=== PATIENT | female | born 1935 | race African-American/Black ===

== ENCOUNTER 2017-08-12 13:29 | Emergency (ER) | payer MEDICARE, BC ==
[~2017-08-12] VITALS: Ht 160 cm; Wt 78.5 kg
[~2017-08-12 13:29] MED LIST: (None)1 % OS; ACETAMIN325 MG PO; AMOXICILLIN/CL875 MG PO; AUGMENTIN500TAB PO; BACTRIM DS1 TAB PO; BESIVANCE0.6 % OD; CATAPRES0.1 MG OR; CEFEPIME1 G2 IV; CEFTIN500 MG PO; CENTRUM SILVER PO; CETIRIZ/PSE1 TAB PO; CHILD ASA LS81 MG PO; CIPRO XR500 MG PO; CIPROFLOXACN250 MG PO; CIPROFLOXACN500 MG PO; ECONOPRED PL1 % OP; FLONASE NASAL50 MCG; GLUCOPHAGE500 MG OR; GLUCOPHAGE500 MG PO; HUMULIN R1 ML IJ; HYDRALAZINE25 MG PO; HYDROCHLOROT12.5 MG OR; HYDROCHLOROT12.5 MG PO; KETOROLAC0.5 % OP; KLOR-CON 1010 ME1 PO; LASIX 40 MG TAB40 MG PO; LIPITOR40 M1 PO; LIPITOR40 MG PO; LISINOP/HCTZ1 TA1 PO; LISINOPRIL/HYDR1 TA1 PO; LISINOPRIL2.5 MG PO; LISINOPRIL20 MG PO; LOTEMAX0.52 OU; LOVASTATIN40 MG PO; LUMIGAN0.01 % OP; LUMIGAN0.01 % OU; METFORMIN500 M1 PO; METFORMIN500 MG PO; METOCLOPRAM5 MG PO; METOCLOPRAMIDE H5 MG PO; METOPROL TAR50 MG PO; METOPROLOL TART50 MG PO; MONOPRIL HC1 OR; MONOPRIL20 MG OR; MULTI VIT PO; MULTI-VIT/FE PO; NOVOLIN 70/30 SC; NOVOLOG MIX SC; PERCOCET 5/321 COMBO PO; PLAVIX75 MG PO; POM OU; PROTONIX40 M2 PO; PROTONIX40 MG PO; RESTORIL15 MG PO; SIMVASTATIN20 MG PO; SIMVASTATIN40 MG PO; STOOL SOFTE OR; TEMAZEPAM15 MG PO; XALATAN0.005 % OP; ZOFRAN4 MG/TAB PO; ZPAK PO; ZYRTEC-D AL1 PO; ZYRTEC-D ALG OR; [UNRECOGNIZED DRUG - OTHER] IV; catapres PO
[2017-08-12] MEDS ORDERED: CLOPIDOGREL75 MG PO (13:58)
[2017-08-12] MEDS ORDERED: NOVOLOG MIX100 U/ML SC (14:01)
[2017-08-12 14:51] LABS: HEMATOCRIT 39.2 % (37.0-47.0); HEMOGLOBIN 12.5 g/dl (12.0-16.0); MEAN CELL VOLUME 89.7 fL CALC (80.0-100.0); MEAN CORPUSCULAR HGB 28.6 pG CALC (26.0-32.0); MEAN CORPUSCULAR HGB CONC 31.9 g/L CALC (32.0-36.0); RED BLOOD COUNT 4.37 mill/uL (4.20-5.60); RED CELL DISTRI WIDTH 12.6 % (11.5-15.5)
[2017-08-12 14:52] LABS: IMMATURE GRANULOCYTES 0.5 % (0.0-1.0); NEUT# 7.64 thou/uL (2.00-7.15)
[2017-08-12 15:08] LABS: ALBUMIN 3.8 g/dL (3.2-5.0); ANION GAP 19 (6-22 (CALC)); BILIRUBIN, TOTAL 0.4 mg/dL (0.0-1.4); BUN 19 mg/dL (8-23); BUN/CREATININE RATIO 16 (12-20 (CALC)); CARBON DIOXIDE 28 mmol/l (22-30); CHLORIDE 99 mmol/l (95-108); CREATININE 1.2 mg/dL (0.5-1.0); GFR 43 ML/MIN (>=60 (CALC)); GFR FOR AFR.AMER. 52 ML/MIN (>=60 (CALC)); POTASSIUM 4.3 mmol/l (3.5-5.1); SODIUM 142 mmol/l (137-146); TOTAL PROTEIN 7.8 g/dL (6.3-8.2)
[2017-08-12 15:10] LABS: ALKALINE PHOSPHATASE 109 u/l (38-126); AMYLASE 207 u/l (30-110); LIPASE 98 u/l (23-300); MYOGLOBIN 53 ng/mL (0 - 62); SGOT/AST 23 u/l (9-36); SGPT/ALT 14 u/l (11-66)
[2017-08-12 15:35] LABS: URINE BILIRUBIN - DIPSTICK NEGATIVE (NEGATIVE); URINE BLOOD DIPSTICK TRACE-INTACT (NEGATIVE); URINE COLOR YELLOW; URINE GLUCOSE - DIPSTICK >=1000 mg/dL (NEGATIVE); URINE KETONE TRACE mg/dL (NEGATIVE); URINE PH 5.5 (4.5-8.0); URINE PROTEIN - DIPSTICK NEGATIVE (NEG-TRACE); URINE SPECIFIC GRAVITY 1.015; URINE UROBILINOGEN - DIPSTICK 0.2 E.U./dL (0.2)
[2017-08-12 15:38] LABS: URINE CLARITY TURBID; URINE LEUK ESTERASE MODERATE (NEGATIVE); URINE NITRITE - DIPSTICK POSITIVE (Negative)
[2017-08-12 15:47] LABS: URINE BACTERIA MODERATE hpf; URINE MUCUS FEW hpf (NONE-FEW); URINE SQUAMOUS EPITHELIAL CELL FEW EPI/hpf (0-FEW); URINE WBC 20-50 WBC/hpf (0-5)
[2017-08-12] MEDS ORDERED: CIPROFLOXACN500 MG PO (16:42)
[2017-08-12] MEDS ORDERED: ZOFRAN ODT4 MG PO (16:42)
[2017-08-12 17:26] VITALS: BP 136/80
== END 2017-08-12 17:28 | disposition home or self-care (01) ==
LOC: ED 13:29
PROVIDERS: Emergency Medicine
DX: E11.65 Type 2 diabetes mellitus with hyperglycemia (principal); N39.0 Urinary tract infection, site not specified; B96.1 Klebsiella pneumoniae [K. pneumoniae] as the cause of diseases classified elsewhere; R11.10 Vomiting, unspecified; I10 Essential (primary) hypertension; E78.00 Pure hypercholesterolemia, unspecified
CPT/HCPCS: Q9967

== ENCOUNTER 2017-08-13 17:31 | Inpatient (IN) | payer MEDICARE, BC ==
[~2017-08-13] VITALS: Ht 157.5 cm; Wt 76.7 kg
[~2017-08-13 17:31] MED LIST changes: +CLOPIDOGREL75 MG PO; +NOVOLOG MIX100 U/ML SC; +ZOFRAN ODT4 MG PO
--- NOTE | 2017-08-13 17:50 | NUR ---
PT ARRIVED A DIRECT ADMIT AT THIS TIME. WITH FAMILY IN THE WC. ABLE TO STAND AND AMBULATE TO THE BATHROOM WITH FAMILY IN THE ROOM.
[2017-08-13 18:00] VITALS: BP 140/58
--- NOTE | 2017-08-13 18:20 | NUR ---
IV ATTEMPTED X3, WITH SUCCESS BY YECENIA REYNAGA LAC #20 BREATH SOUNDS ARE CLEAR,BILATERALLY, NO C/O SOB, HR IS REG,PULSES ARE STRONG X4. ABD IS SOFT WITH ACTIVE BS. CONTINUE TO OSBERVE AND MONITOR.
[2017-08-13 19:05] LABS: URINE BILIRUBIN - DIPSTICK NEGATIVE (NEGATIVE); URINE BLOOD DIPSTICK TRACE-INTACT (NEGATIVE); URINE COLOR YELLOW; URINE GLUCOSE - DIPSTICK >=1000 mg/dL (NEGATIVE); URINE KETONE NEGATIVE (NEGATIVE); URINE NITRITE - DIPSTICK NEGATIVE (Negative); URINE PH 5.5 (4.5-8.0); URINE PROTEIN - DIPSTICK NEGATIVE (NEG-TRACE); URINE UROBILINOGEN - DIPSTICK 0.2 E.U./dL (0.2)
[2017-08-13 19:08] LABS: HEMATOCRIT 38.1 % (37.0-47.0); HEMOGLOBIN 12.1 g/dl (12.0-16.0); IMMATURE GRANULOCYTES 0.9 % (0.0-1.0); MEAN CELL VOLUME 90.7 fL CALC (80.0-100.0); MEAN CORPUSCULAR HGB 28.8 pG CALC (26.0-32.0); MEAN CORPUSCULAR HGB CONC 31.8 g/L CALC (32.0-36.0); NEUT# 7.6 thou/uL (2.00-7.15); RED BLOOD COUNT 4.2 mill/uL (4.20-5.60); RED CELL DISTRI WIDTH 13.1 % (11.5-15.5)
[2017-08-13 19:12] LABS: URINE CLARITY CLOUDY; URINE LEUK ESTERASE LARGE (NEGATIVE)
--- NOTE | 2017-08-13 19:12 | NUR ---
REPORT RECEIVED FROM EVELINA ELKINS;PT RESTING IN BED;INTRODUCED SELF TO PT AND POC DISCUSSED;PT DENIES ANY PAIN OR NEEDS AT THIS TIME;ENCOURAGED TO CALL FOR ASSISTANCE IF NEEDED;WILL CONTINUE TO MONITOR
[2017-08-13 19:22] LABS: URINE BACTERIA FEW hpf; URINE SQUAMOUS EPITHELIAL CELL FEW EPI/hpf (0-FEW); URINE WBC TNTC WBC/hpf (0-5); URINE YEAST MODERATE hpf
[2017-08-13 19:34] LABS: CREATININE 1.7 mg/dL (0.5-1.0)
[2017-08-13 21:07] VITALS: BP 114/64
--- NOTE | 2017-08-13 21:15 | NUR ---
PT APPEARS TO BE SLEEPING IN SEMI FOWLERS POSITION;WOKE PT TO COMPLETE ASSESSMENT;PT A&O X3;RESPIRATIONS EVEN AND UNLABORED ON RA,CLEAR LUNG SOUNDS;ABDOMEN SOFT ON PALPATION AND ACTIVE IN ALL 4 QUADS;STRONG PEDAL PULSES;CAP REFILL LESS THAN 2 SECONDS;SKIN INTACT;#20G TO LAC INFUSING NS @ 100ML/HR,SITE APPEARS HEALTHY AND FREE FROM EDEMA;SNACK PROVIDED WITH QHS INSULIN;SAFETY PRECAUTIONS REINFORCED;PT STATES "I FEEL BETTER";PO FLUIDS ENCOURAGED;PT DENIES ANY OTHER NEEDS AT THIS TIME;FALL PRECAUTIONS IN PLACE;CALL LIGHT IN REACH;WILL CONTINUE TO MONITOR
--- NOTE | 2017-08-14 | NUR ---
PT RESTING IN SEMI FOWLERS POSITION;PT DENIES ANY PAIN OR NEEDS AT THIS TIME;IV SITE PATENT;RESPIRATIONS EVEN AND UNLABORED ON RA;PT ENCOURAGED TO CALL FOR ASSISTANCE IF NEEDED;COMMODE AT BEDSIDE;WILL CONTINUE TO MONITOR
[2017-08-14 03:01] VITALS: BP 123/58
--- NOTE | 2017-08-14 03:10 | NUR ---
PT RESTING IN BED WITH MARISELALAB AT BEDSIDE;PT DENIES ANY PAIN OR DISCOMFORTS;RESPIRATIONS EVEN AND UNLABORED ON RA,O2 @ 2L HUM AT BEDSIDE;PT ENCOURAGED TO CALL FOR ANY ASSISTANCE IF NEEDED;WILL CONTINUE TO MONITOR
[2017-08-14 03:47] LABS: HEMOGLOBIN 11.4 g/dl (12.0-16.0); IMMATURE GRANULOCYTES 0.5 % (0.0-1.0); MEAN CELL VOLUME 91.8 fL CALC (80.0-100.0); MEAN CORPUSCULAR HGB 28.3 pG CALC (26.0-32.0); MEAN CORPUSCULAR HGB CONC 30.8 g/L CALC (32.0-36.0); NEUT# 6.21 thou/uL (2.00-7.15); RED BLOOD COUNT 4.03 mill/uL (4.20-5.60); RED CELL DISTRI WIDTH 13.1 % (11.5-15.5)
[2017-08-14 05:19] LABS: BILIRUBIN, TOTAL 0.2 mg/dL (0.0-1.4); CREATININE 1.5 mg/dL (0.5-1.0); POTASSIUM 4.1 mmol/l (3.5-5.1)
[2017-08-14 05:49] LABS: TOTAL PROTEIN 6.2 g/dL (6.3-8.2)
--- NOTE | 2017-08-14 07:00 | NUR ---
BEDSIDE REPORT RECEIVED BY LANEY. PT IS SLEEPING WITH NO S/S OF DISTRESS NOTED. CALL LIGHT IN REACH.
[2017-08-14 07:34] VITALS: BP 167/63
--- NOTE | 2017-08-14 08:00 | NUR ---
PT IS SITTING IN THE SIDE OF THE BED. ASSESSMENT DONE. RESPS EVEN AND UNLABORED. NS INFUSING WELL. PT DENIES PAIN AT THIS TIME. ORINETED TO CALL LIGHT AND SAFETY PRECAUTIONS REINFORCED.
--- NOTE | 2017-08-14 12:00 | NUR ---
PT IS SITTING IN BED EATING HER LUNCH WITH NO S/S OF DISTRESS NOTED. FAMILY IN ROOM. CALL LIGHT IN REACH.
[2017-08-14 16:00] VITALS: BP 168/70
--- NOTE | 2017-08-14 16:00 | NUR ---
PT IS SITTING IN CHAIR WITH NO S/S OF DISTRESS NOTED. PT DENIES ANY NEEDS AT THIS TIME. CALL LIGHT IN REACH.
--- NOTE | 2017-08-14 18:58 | NUR ---
Discharge instructions given. Patient verbalizes understanding of same. Discharged in stable condition via Wheelchair to Home with family. All belongings sent with pt.
== END 2017-08-14 19:00 | disposition home or self-care (01) | DRG 690 ==
LOC: MS2 17:31
PROVIDERS: ADMIT Internal Medicine Geriatric Medicine; ATTEND Internal Medicine Geriatric Medicine
DX: N39.0 Urinary tract infection, site not specified (principal); E11.42 Type 2 diabetes mellitus with diabetic polyneuropathy; E11.65 Type 2 diabetes mellitus with hyperglycemia; I11.0 Hypertensive heart disease with heart failure; I50.9 Heart failure, unspecified; E86.0 Dehydration; I25.10 Atherosclerotic heart disease of native coronary artery without angina pectoris; E78.5 Hyperlipidemia, unspecified; K21.9 Gastro-esophageal reflux disease without esophagitis; F41.9 Anxiety disorder, unspecified; M35.3 Polymyalgia rheumatica; E11.43 Type 2 diabetes mellitus with diabetic autonomic (poly)neuropathy; K31.84 Gastroparesis; M19.90 Unspecified osteoarthritis, unspecified site; B96.20 Unspecified Escherichia coli [E. coli] as the cause of diseases classified elsewhere; B96.4 Proteus (mirabilis) (morganii) as the cause of diseases classified elsewhere

== ENCOUNTER 2018-04-06 13:23 | Inpatient (IN) | payer MEDICARE, BC ==
[~2018-04-06] VITALS: Ht 157.5 cm; Wt 81.8 kg
[2018-04-06] VITALS (8 sets, daily range): BP systolic 151–177; BP diastolic 57–76
[2018-04-06] MEDS ORDERED: NOVOLIN 70/30 SC ×2 (13:57)
[2018-04-06 14:41] LABS: HEMATOCRIT 45.4 % (37.0-47.0); HEMOGLOBIN 14.1 g/dl (12.0-16.0); IMMATURE GRANULOCYTES 0.4 % (0.0-5.0); MEAN CELL VOLUME 90.3 fL CALC (80.0-100.0); MEAN CORPUSCULAR HGB CONC 31.1 g/L CALC (32.0-36.0); NEUT# 9.16 thou/uL (2.00-7.15); RED BLOOD COUNT 5.03 mill/uL (4.20-5.60); RED CELL DISTRI WIDTH 13.9 % (11.5-15.5)
--- NOTE | 2018-04-06 14:50 | NUR ---
PT RESTIGN ON STRETCHER DAUGHTER AT SIDE, STATES N/V STARTED ON FRIDAY AND HAS NOT IMPROVED, TOOK AM MEDICATIONS BUT VOMITED THEM UP AND PILLS WERE VISIBLE IN EMESIS PER DAUGTER.
[2018-04-06 14:58] LABS: ALKALINE PHOSPHATASE 128 u/l (38-126); AMYLASE 125 u/l (30-110); BILIRUBIN, TOTAL 0.4 mg/dL (0.0-1.4); BUN 24 mg/dL (8-23); BUN/CREATININE RATIO 16 (12-20 (CALC)); CARBON DIOXIDE 26 mmol/l (22-30); CHLORIDE 102 mmol/l (95-108); CREATININE 1.5 mg/dL (0.5-1.0); GFR 33 ML/MIN (>=60 (CALC)); GFR FOR AFR.AMER. 40 ML/MIN (>=60 (CALC)); LIPASE 82 u/l (23-300); SGOT/AST 20 u/l (9-36); SODIUM 143 mmol/l (137-146)
[2018-04-06 15:00] LABS: ANION GAP 20 (6-22 (CALC)); POTASSIUM 5.2 mmol/l (3.5-5.1); TOTAL PROTEIN 8.6 g/dL (6.3-8.2)
--- NOTE | 2018-04-06 15:08 | NUR ---
MEDICATED FOR COMPLAINTS OF NAUSE, BP ELEVATED WILL NOTIFY .
[2018-04-06 15:09] LABS: MYOGLOBIN 45 ng/mL (0 - 62)
--- NOTE | 2018-04-06 15:58 | NUR ---
PT OOB TO BESC, TOELRATED WELL, CONTINENT OF 200 ML CLOUDY URINE WITH FOUL ODOR NOTED, SPECIMEN OBTAINED AND SENT TO LAB.
[2018-04-06 16:25] LABS: URINE BILIRUBIN - DIPSTICK NEGATIVE (NEGATIVE); URINE BLOOD DIPSTICK SMALL (NEGATIVE); URINE COLOR YELLOW; URINE GLUCOSE - DIPSTICK >=1000 mg/dL (NEGATIVE); URINE KETONE 15 mg/dL (NEGATIVE); URINE LEUK ESTERASE TRACE (NEGATIVE); URINE NITRITE - DIPSTICK NEGATIVE (Negative); URINE PH 5.5 (4.5-8.0); URINE PROTEIN - DIPSTICK NEGATIVE (NEG-TRACE); URINE SPECIFIC GRAVITY 1.025; URINE UROBILINOGEN - DIPSTICK 0.2 E.U./dL (0.2)
[2018-04-06 16:27] LABS: URINE CLARITY SL CLOUDY
[2018-04-06 16:34] LABS: URINE BACTERIA MODERATE hpf; URINE SQUAMOUS EPITHELIAL CELL FEW EPI/hpf (0-FEW)
--- NOTE | 2018-04-06 16:39 | NUR ---
AWARE OF CONTINUED HYPERTENSION, WILL REPEAT UPON RETURN FROM RADIOLOGY. DAUGHTER REMAINS AT BEDSIDE
--- NOTE | 2018-04-06 17:38 | NUR ---
15F WOLF INSERTED USING STERILE TECHNIQUE PER VERBAL ORDER , IMMEDIATE RETRUN OF 400+ ML CLOUDY YELLOW URINE, DAUGHTER REMAINS AT BEDSIDE
--- NOTE | 2018-04-06 17:56 | NUR ---
EKG COMPLETED AT THIS TIME, AT BEDSIDE TO ERUM
--- NOTE | 2018-04-06 18:15 | NUR ---
BP 170/63 AWARE.
--- NOTE | 2018-04-06 18:18 | NUR ---
REPORT CALLED TO DOREEN ON ICU BED 5 ASSIGNED
--- NOTE | 2018-04-06 18:25 | NUR ---
TRASNPORTED TO ICU BED 5 VIA STRETCHER WITH MONITOR
--- NOTE | 2018-04-06 18:30 | NUR ---
82 yr old black female admitted icu5 per stretcher from er. transferred x2 to bed. bed weight obtained.
--- NOTE | 2018-04-06 19:00 | NUR ---
awake. denies distress. eating supper meal @ present. denies nausea. o2 cont per nc. potline monitor shows sinus rhythm pvcs. #20 lac ns began @ 125cchr. barker cath in place. urine cloudy yellow. history obtained per er record & caro(daughter). oriented to room. fall precautions initiated.
--- NOTE | 2018-04-06 19:20 | NUR ---
dr jarrett notified of admission. he will review chart & put orders in computer.
--- NOTE | 2018-04-06 19:50 | NUR ---
rt notified of need for ekg.
--- NOTE | 2018-04-06 19:55 | NUR ---
rt here. ekg obtained.
--- NOTE | 2018-04-06 22:00 | NUR ---
eyes closed. no distress. residential monitor shows sinus rhythm.
--- NOTE | 2018-04-06 23:30 | NUR ---
awake. yelling out for family. found pt out of bed, iv out, barker pulled apart from bag, bp cuff & pulse ox off. assisted pt to bed. reoriented without diff. iv, sterile barker bag, bp cuff & pulse ox replaced. bed alarm activated.
[2018-04-07] VITALS (13 sets, daily range): BP systolic 104–195; BP diastolic 50–89
--- NOTE | 2018-04-07 02:00 | NUR ---
resting quietly. resps even & unlabored. no apparent distress.
--- NOTE | 2018-04-07 05:00 | NUR ---
lab here. pt began yelling out for family. pt reoriented without diff. pt refused lab draw.
--- NOTE | 2018-04-07 05:50 | NUR ---
rt here. ekg obtained.
--- NOTE | 2018-04-07 06:11 | NUR ---
blood drawn & sent to lab.
[2018-04-07 06:32] LABS: IMMATURE GRANULOCYTES 0.3 % (0.0-5.0); MEAN CELL VOLUME 90.1 fL CALC (80.0-100.0); MEAN CORPUSCULAR HGB 28.6 pG CALC (26.0-32.0); MEAN CORPUSCULAR HGB CONC 31.8 g/L CALC (32.0-36.0); NEUT# 6.82 thou/uL (2.00-7.15); RED BLOOD COUNT 4.05 mill/uL (4.20-5.60); RED CELL DISTRI WIDTH 14.2 % (11.5-15.5)
[2018-04-07 06:39] LABS: BILIRUBIN, TOTAL 0.3 mg/dL (0.0-1.4); CHOLESTEROL HDL RATIO 3.3 (<4.4 (CALC)); CREATININE 1.1 mg/dL (0.5-1.0)
[2018-04-07 06:44] LABS: HEMATOCRIT 36.5 % (37.0-47.0); HEMOGLOBIN 11.6 g/dl (12.0-16.0); POTASSIUM 3.8 mmol/l (3.5-5.1)
[2018-04-07 06:45] LABS: ALBUMIN 2.9 g/dL (3.2-5.0); TOTAL PROTEIN 6.3 g/dL (6.3-8.2)
--- NOTE | 2018-04-07 06:45 | NUR ---
RECIEVED REPORT FROM EVELINA FERGUSON. ASSUMED PT CARE.
--- NOTE | 2018-04-07 07:00 | NUR ---
PT A&OX3, ABLE TO MAKE NEEDS KNOWN. SR WITH OCCASIONAL PVC'S ON TELEMETRY, HR 72, B/P 144/66, T-96.8, SA02@97%RA. PT DENIES CHEST PAIN, SOB OR DISTRESS AT THIS TIME. RESPIRATIONS EVEN, UNLABORED. LS CLEAR THROUGHOUT. ABDOMEN DISTENDED, SOFT, NON-TENDER, BSX4 ACTIVE. PT STATES LAST BM 11-5-18. WOLF CATHETER PATENT, DRAINING TO BSD, DARK YELLOW URINE, PT DENIES BURNING OR PAIN AT SITE, WOLF CARE PROVIDED. SKIN IS CDI, PT DECLINES MIKEY'S TO BLE. 20G TO RAC INFUSING NS @125ML/HR, NO S/S OF INFILTRATION OR REDNESS AT SITE. BED ALARM IN PLACE, BED IN LOWEST POSITION, CALL LIGHT IN REACH.
--- NOTE | 2018-04-07 07:31 | NUR ---
KAITLIN AT BEDSIDE, HELPED PT WITH BRUSHING TEETH AND SET UP BREAKFAST TRAY, PT SITTING UP IN BED EATING BREAKFAST. TAKES PO FLUIDS AND FOOD WITHOUT DIFFICULTY. CALL LIGHT IN REACH.
--- NOTE | 2018-04-07 07:49 | NUR ---
DIETARY ON UNIT, FOR MEAL ORDERS.
--- NOTE | 2018-04-07 08:00 | NUR ---
DR. PINEDA AT BEDSIDE FOR ASSESSMENT AND TO DISCUSS PLAN OF CARE. NEW ORDERS RECIEVED. CALL LIGHT IN REACH.
--- NOTE | 2018-04-07 08:25 | NUR ---
FAMILY AT BEDSIDE, DR. PINEDA SPOKE WITH FAMILY. PT RESTING IN BED, VISITING WITH DAUGHTERS AND GRANDSON.
--- NOTE | 2018-04-07 09:00 | NUR ---
PT NOTED SPITING IN TO BAG, STATED SHE WAS NAUSEOUS. COOL CLOTH GIVEN. WILL MONITOR.
--- NOTE | 2018-04-07 10:02 | NUR ---
PT RESTING IN BED WITH EYES CLOSED. 20G TO RAC INFUSING NS@50ML/HR, NO S/S OF INFILTRATION OR REDNESS AT SITE. RESPIRATION EVEN/UNLABORED. BED IN LOWEST POSITION, CALL LIGHT IN REACH. WILL MONITOR.
--- NOTE | 2018-04-07 10:45 | NUR ---
PT COMPLAINING OF FEELING NAUSEOUS, MEDICATED WITH ZOFRAN, PRN. PER ORDERS. WILL MONITOR.
--- NOTE | 2018-04-07 11:00 | NUR ---
PT B/P 211/, THEN 188/80. PT MEDICATED WITH LABATOLOL PRN ORDERED. WILL MONITOR.
--- NOTE | 2018-04-07 11:45 | NUR ---
DIETARY ON UNIT, LUNCH TRAY SET UP. GRAND-DAUGHTER AT BED SIDE. CALL LIGHT IN REACH, WILL MONITOR.
--- NOTE | 2018-04-07 14:06 | NUR ---
PT RESTING IN BED WITH EYES CLOSED, FAMILY AT BEDSIDE.
--- NOTE | 2018-04-07 14:32 | NUR ---
DAUGHTER CALLED, UPDATE GIVEN AFTER CODE RECIEVED. THEN CALL TRANSFERRED TO PORTABLE TO SPEAK WITH PT.
--- NOTE | 2018-04-07 15:18 | NUR ---
NOTIFIED DR. PINEDA IN REGARDS TO PT CONTINUOUS HTN. NEW ORDERS RECIEVED. WILL MONITOR. FAMILY REMAINS AT BEDSIDE. PT DENIES CHEST PAIN, H/A, SOB OR DISTRESS AT THIS TIME. CALL LIGHT IN REACH . WILL MONITOR.
--- NOTE | 2018-04-07 16:01 | NUR ---
PT WITH MULTIPLE FAMILY MEMEBERS AT BEDSIDE, PT STATING TO FAMILY SHE SPIT UP LUNCH, NO EVEIDENCE NOTED. PT HAS ONLY HAS ONLY BEEN SEEN WITH MINIMAL CLEAR SPIT. PT NOTED WHEN SPEAKING WITH FAMILY ON PHONE TO CLAIM SHE IS VOMITING AND CAN NOT TALK. NO EVIDENCE NOTED OF THIS EITHER. PT HAS HAD < 100ML OF CLEAR SPIT THIS SHIFT. PT HAS DECLINED A 2ND PRN DOSE OF ZOFRAN WHEN ASKED. CALL LIGHT IN REACH. WILL MONITOR.
--- NOTE | 2018-04-07 17:00 | NUR ---
DR. PINEDA AT BEDSIDE FOR ASSESSMENT AND TO DISCUSS PLAN OF CARE, NEW ORDERS RECIEVED.
--- NOTE | 2018-04-07 17:30 | NUR ---
DIETARY ON UNIT, PT REFUSED DINNER TRAY. PLACED TRAY TO SIDE FOR LATER IF PT CHANGES MIND. WILL MONITOR.
--- NOTE | 2018-04-07 17:49 | NUR ---
PT MEDICATED WITH MIRIAM'S MOUTHWASH FOR N/V AND TYLENOL FOR NECK ACHING "3" ON 1-10 SCALE. PT CONTINUES WITH MULTIPLE FAMILY MEMBERS AT BEDSIDE.
--- NOTE | 2018-04-07 18:16 | NUR ---
PT DECIDED TO EAT DINNER. MEAL TRAY SET UP. PT FAMILY REMAINS AT BEDSIDE.
--- NOTE | 2018-04-07 19:00 | NUR ---
awake. denies n/v. marine habitat resource specialist shows sinus rhythm pvcs. #20 rac ns infusing @ 50cchr. po fluids taken well. barker cath in place. urine clear yellow-much improved from last nite. fall precautions & bed alarm cont.
--- NOTE | 2018-04-07 22:00 | NUR ---
eyes closed. no distress. monitoring coordinator shows sinus rhythm.
[2018-04-08] VITALS (10 sets, daily range): BP systolic 118–174; BP diastolic 51–73
--- NOTE | 2018-04-08 00:01 | NUR ---
eyes closed. no distress. monitor worker shows sinus rhythm.
--- NOTE | 2018-04-08 02:00 | NUR ---
resting quietly. resps even & unlabored. no apparent distress.
--- NOTE | 2018-04-08 04:00 | NUR ---
eyes closed. no distress. color television console monitor shows sinus rhythm.
--- NOTE | 2018-04-08 05:00 | NUR ---
blood drawn & sent to lab
[2018-04-08 05:13] LABS: HEMATOCRIT 37.2 % (37.0-47.0); HEMOGLOBIN 11.8 g/dl (12.0-16.0); IMMATURE GRANULOCYTES 0.4 % (0.0-5.0); MEAN CELL VOLUME 89.2 fL CALC (80.0-100.0); MEAN CORPUSCULAR HGB 28.3 pG CALC (26.0-32.0); MEAN CORPUSCULAR HGB CONC 31.7 g/L CALC (32.0-36.0); NEUT# 4.78 thou/uL (2.00-7.15); RED BLOOD COUNT 4.17 mill/uL (4.20-5.60); RED CELL DISTRI WIDTH 14.4 % (11.5-15.5)
[2018-04-08 05:31] LABS: ALBUMIN 2.8 g/dL (3.2-5.0); BILIRUBIN, TOTAL 0.2 mg/dL (0.0-1.4); CREATININE 1.1 mg/dL (0.5-1.0); TOTAL PROTEIN 6.1 g/dL (6.3-8.2)
--- NOTE | 2018-04-08 06:45 | NUR ---
RECIEVED REPORT FROM EVELINA FERGUSON. ASSUMED PT CARE.
--- NOTE | 2018-04-08 07:00 | NUR ---
FAMILY AT BEDSIDE, MOUTH CARE DONE, DIETARY ON UNIT. BREAKFAST TRAY SET UP.
--- NOTE | 2018-04-08 07:30 | NUR ---
PT A&OX3, ABLE TO MAKE NEEDS KNOWN. SR WITH OCCASIONAL PVC'S ON TELEMETRY. HR-84, B/P-162/58, SA02@97%RA.RESPIRATIONS EVEN/UN-LABORED, LS CLEAR THROUGHOUT, PT DENIES CHEST PAIN, SOB OR DISTRESS AT THIS TIME. WOLF CATHETER REMAINS PATENT, DRAINING TO BSD, CLEAR YELLOW URINE. WOLF CARE PROVIDED. ABDOMEN DISTENDED, SOFT, NON- TENDER, BSX4 ACTIVE, LAST BM REPORTED 04-06-18. PT SKIN IS CDI. 20G TO RAC NOTED LEAKING AT SITE, INFUSION STOPPED, IV SITE DISCONTINUED, CATHETER INTACT,NO S/S OF INFILTRATION OR REDNESS AT SITE. PT TOLERATED WELL. BED IN LOWEST POSITION, CALL LIGHT IN REACH, WILL MONITOR.
--- NOTE | 2018-04-08 08:00 | NUR ---
DR. PINEDA AT BEDSIDE FOR ASSESSMENT AND TO DISCUSS PLAN OF CARE, NEW ORDERS RECIEVED.
--- NOTE | 2018-04-08 09:26 | NUR ---
DISCONTINUED WOLF CATHETER AFTER DEFLATED, PT TOLERATED WELL. WILL MONITOR.
--- NOTE | 2018-04-08 09:33 | NUR ---
REPORT CALLED TO JUHI SELBY. ON MS2
--- NOTE | 2018-04-08 09:44 | NUR ---
REPORT RECEIVED FROM CLEMENTE IN ICU, PT ARRIVED ON UNIT @ 0977 VIA W/C THEN SHOWERED AND SETTLED IN RECLINER. ALERT AND ORIENTED X 3, N/O C/O DISCOMFORT, INFORMED OF NEW PICC LINE ORDER WROTE, ALL NEEDS ADDRESSED, CALL WILKERSON IN REACH.
--- NOTE | 2018-04-08 10:48 | NUR ---
LEAVING UNIT NOW TO RADIOLOGY VIA W/C WITH VOLUNTEERS FOR PROCEDURE.
--- NOTE | 2018-04-08 12:13 | NUR ---
RETURNED FROM PROCEDURE AND SETTLED IN RECLINER, SINGLE LUMEN PICC LINE IN PLACE TO RIGHT UPPER ARM, SET UP FOR MEAL, CALL WILKERSON IN REACH.
--- NOTE | 2018-04-08 12:17 | NUR ---
ATE MEAL AND RESTING IN BED AT THIS TIME, CALL WILKERSON IN REACH.
--- NOTE | 2018-04-08 13:00 | NUR ---
PT C/O NO SUND FROM TV AND FAMILY & PT REQUEST ROOM CHANGE IF UNABLE TO RESOLVE PROBLEM NOW, PT MOVED TO ROOM 277 WHERE CONTROLS WORK.
--- NOTE | 2018-04-08 16:00 | NUR ---
SLEEPING SOUNDLY, NO SIGN DISCOMFORT.
--- NOTE | 2018-04-08 19:30 | NUR ---
PATIENT RESTING IN BED POSITIONED ON LEFT SIDE WITH EYES CLOSED-APPEARS SLEEPING AT THIS TIME. RESP ARE EVEN AND UNLABORED. CALL LIGHT IN REACH. WILL CONT TO MONITOR.
--- NOTE | 2018-04-08 21:30 | NUR ---
PATIENT RESTING IN BED-EASILY AROUSED. AWAKE ALERT AND ORIENTEDX3. BS-300 AT THIS TIME. PATIENT COVERED WITH 5UNITS OF NOVALOG SQ ORDERED PER [facility] COVERAGE. GIVEN SCHEDULED DOSE OF 20UNITS 70/30 ORDERED. PICC TO RIGHT ARM INTACT-APPEARS HEALTHY AT THIS TIME. PATIENT IS UNSTEADY ON HER FEET. SAFETY PRECAUTIONS REINFORCED. CALL LIGHT IN REACH. WILL CONT TO MONITOR.
--- NOTE | 2018-04-09 02:01 | NUR ---
RESTING IN BED AT THIS TIME WITH EYES CLOSED AND APPEARS SLEEPING. RESP ARE EVEN AND UNLABORED AT THIS TIME. CALL LIGHT IN REACH. WILL CONT TO MONITOR.
[2018-04-09 04:26] VITALS: BP 153/73
--- NOTE | 2018-04-09 04:26 | NUR ---
PATIENT APPEARS SLEEPING ON LEFT SIDE. CALL LIGHT IN REACH. WILL CONT TO MONITOR.
--- NOTE | 2018-04-09 04:57 | NUR ---
PATIENT RESTING IN BED APPEARS SLEEPING WITH EYES CLOSED. RESP ARE EVEN AND UNLABORED. LAB WORK DRAWN FROM RIGHT UPPER ARM PICC WITHOUT ANY DIFFICULTY-GOOD BLOOD RETURN AND FLUSHED PER [facility] PROTOCOL WITH SALINE AND HEP SOLUTION. PATIENT CONT TO SLEEP. CALL LIGHT IN REACH. WILL CONT TO MONITOR.
[2018-04-09 05:12] LABS: HEMATOCRIT 38.8 % (37.0-47.0); HEMOGLOBIN 12.1 g/dl (12.0-16.0); IMMATURE GRANULOCYTES 0.5 % (0.0-5.0); MEAN CELL VOLUME 90.2 fL CALC (80.0-100.0); MEAN CORPUSCULAR HGB 28.1 pG CALC (26.0-32.0); MEAN CORPUSCULAR HGB CONC 31.2 g/L CALC (32.0-36.0); NEUT# 5.19 thou/uL (2.00-7.15); RED BLOOD COUNT 4.3 mill/uL (4.20-5.60); RED CELL DISTRI WIDTH 14.6 % (11.5-15.5)
[2018-04-09 05:29] LABS: CREATININE 1.3 mg/dL (0.5-1.0)
[2018-04-09 05:50] VITALS: BP 163/80
--- NOTE | 2018-04-09 05:52 | NUR ---
RECIEVED CALL FROM [facility] IN LAB WITH CRITICAL LAB [id number]. RESPONDED IMMEDIATELY TO ROOM AND PATIENT IS COLD AND CLAMMY-BED IS SOAKED. UNRESPONSIVE INITAILLY WITH GLAZED LOOK. PATIENT GIVEN D50 1 AMP VIA RIGHT UPPER ARM AND PATIENT STARTED TO RESPOND. PATIENT WAS THEN ABLE TO TAKE ORAL APPLE JUICE WITH SUGAR. ACCU-CHECK RECHECKED AND WAS 211. DR. PINEDA CALLED AND LEFT MESSAGE ON VOICE MAIL. AWAITING CALL BACK. PATIENT IS CONFUSED AND GRABBING AT GOWN. CIRCULAR CLERK AT BEDSIDE AND VS TAKEN. WILL CONT TO MONITOR.
--- NOTE | 2018-04-09 06:34 | NUR ---
PATIENT IS MORE ALERT AND RESPODING BETTER TO QUESTIONS. SKIN IS COOL AND DRY AT THIS TIME. BS RECHECKED-141. CALL TO [facility] FOR BREAKFAST TRAY LADONNA. WILL CONT TO MONITOR.
--- NOTE | 2018-04-09 07:00 | NUR ---
BREAKFAST TRAY HERE AND PATIENT ATE ALL MOST ALL OF THE FOOD WITH ASSIST OF PADDER. PATIENT ACCU-CHECK AT THIS TIME IS 166. PATIENT ASSISTED OOB TO CHAIR. MUCH MORE ALERT-HAVING CONVERSATIONS WITH OTHER. FEELING MUCH BETTER.
--- NOTE | 2018-04-09 07:20 | NUR ---
REPORT RECEIVED FROM JUHI CUELLAR;PT OOB RESTING IN RECLINER;INTRODUCED SELF TO PT AND POC DISCUSSED;PT DENIES ANY CURRENT PAIN OR DISCOMFORTS, REPORTS "WEAKNESS";CURRENT BLOOD SUGAR 166 ON ACCUCHECK,WILL CONTINUE TO MONITOR CLOSELY;PT INSTRUCTED TO CALL FOR ASSISTANCE IF NEEDED;FALL PRECAUTIONS IN PLACE WITH CALL LIGHT IN REACH;WILL CONTINUE TO MONITOR
[2018-04-09 07:58] VITALS: BP 170/79
--- NOTE | 2018-04-09 07:58 | NUR ---
AT BEDSIDE DISCUSSING POC.
--- NOTE | 2018-04-09 08:00 | NUR ---
PT OOB WATCHING TV;VS OBTAINED AND ASSESSMENT COMPLETED;RESPIRATIONS EVEN AND UNLABORED,SHALLOW ON RA;CLEAR LUNG SOUNDS NOTED;ABDOMEN DISTENDED/SOFT ON PALPATION AND ACTIVE IN ALL 4 QUADRANTS;WEAK PEDAL PULSES,IT SHOULD BE NOTED PT HAS HX OF LEFT GREAT TOE AMPUTEE;SKIN INTACT;RIGHT UPPER AMM PICC LINE, SINGLE LUMEN FLUSHED AND PATENT;SITE APPEARS HEALTHY AND GOOD BLOOD RETURN NOTED;PT DENIES ANY ADDITIONAL NEEDS AT THIS TIME AND IS INSTRUCTED TO CALL FOR ASSISTANCE IF NEEDED;ALL SAFETY PRECAUTIONS REINFORCED WITH FALL PRECAUTIONS IN PLACE;CALL LIGHT IN REACH;WILL CONTINUE TO MONITOR
--- NOTE | 2018-04-09 11:20 | NUR ---
PT CURRENT BLOOD SUGAR 373. NOTIFIED, ORDER TO GIVE SLIDING SCALE NOVOLOG AND ONE TIME LEVEMIR 20 UNITS AT THIS TIME.
--- NOTE | 2018-04-09 11:50 | NUR ---
PT OOB IN RECLINER EATING LUNCH WITH FAMILY AT BEDSIDE;RESPIRATIONS EVEN AND UNLABORED ON RA;PT DENIES ANY CURRENT PAIN OR NEEDS;ACCUCHECK 373, PT MEDICATED WITH LEVEMIR 20 UNITS AND SLIDING SCALE NOVOLOG PER ORDER;PT ENCOURAGED TO CALL FOR ASSISTANCE IF NEEDED;ASSESSMENT REMAINS UNCHANGED AT THIS TIME;FALL PRECAUTIONS IN PLACE WITH CALL LIGHT IN REACH;WILL CONTINUE TO MONITOR
[2018-04-09 13:29] VITALS: BP 126/63
[2018-04-09 16:25] VITALS: BP 139/36
--- NOTE | 2018-04-09 16:30 | NUR ---
PT OOB TO RESTROOM.PT VOIDED CLEAR/YELLOW URINE WITHOUT DIFFICULTY;PT RE-POSITIONED INTO RECLINER PER REQUEST;RESPIRATIONS EVEN AND UNLABORED ON RA;PT DENIES ANY CURRENT PAIN OR NEEDS;ACCUCHECK OBTAINED BY FELICIA TAN RESULTING IN 323, TO BE NOTIFIED;ALL SAFETY PRECAUTIONS REINFORCED WITH PT WHO VERBALIZES UNDERSTANDING;ENCOURAGED TO CALL FOR ASSISTANCE IF NEEDED;FALL PRECAUTIONS IN PLACE WITH CALL LIGHT IN REACH;WILL CONTINUE TO MONITOR
--- NOTE | 2018-04-09 16:38 | NUR ---
CALLED AND NOTIFED OF BLOOD SUGAR OF 323.ORDER TO D/C NOVOLIN 70/30 AM AND PM DOSE;ONE TIME ORDER OF LEVEMIR 20 UNITS RECEIVED;WILL CONTINUE TO MONITOR
--- NOTE | 2018-04-09 18:36 | NUR ---
PT FAMILY REQUEST A BED ALARM TO BE PLACED ON PATIENT AT NIGHT. FAMILY STATES "SHE GETS CONFUSED AND THINKS SHE IS AT HOME".BED ALARM TO BE PLACED DURING PATIENT RESOURCE COORDINATOR FOR SAFETY.
--- NOTE | 2018-04-09 21:25 | NUR ---
PT MEDICTED ORDERS PROVIDE. PT BS/ACCU-CHECK 347/MEDICATED SLIDING SCALE ORDERS. PT ASSESSED AT THIS TIME. AND ASSISTED TO RESTROOM AND BACK TO BED. PT DENIES ANY PAIN/N/V/D AT THIS TIME. 300CC CLEAR YELLOW URINE OUTPUT. LUNG SOUNDS ARE DIM LOWER/CLEAR, ABD SOFT NON-TENDER, LOCX3, SKIN APPEARS DRY, BUT INTACT. NEURO'S INTACT. PT DENIES ANY NEEDS AT THIS TIME, BUT HAS BEEN ENCOURAGED TO CALL IF ANY OTHER NEEDS ARISE OR IF SHE NEEDS TO AMBULATE TO RESTROOM. CALL LIGHT W/IN REACH.
--- NOTE | 2018-04-10 00:35 | NUR ---
PT DAUGHTER CALLED TO GET UPDATE ON PT STATUS AND POC. PASSCODE PROVIDED AND POC DISCUSSED W/PT'S DAUGHTER. SHE REQUESTED BED ALARM BE PLACED ON PT DUE TO CONFUSION AT NIGHT. SHE ALSO STATED THAT THE PTS SUGAR DROPS BETWEEN 0200 AND 0400 FREQUENTLY. I INFORMED HER THAT WE WOULD BE CHECKING HER MOTHERS SUGAR THROUGHOUT THE NIGHT. BED ALARM PLACED ON PT.
--- NOTE | 2018-04-10 01:55 | NUR ---
PT BLOOD SUGAR WAS CHECKED VIA ACCU-CHECK TO BE 80. PT SNACK PROVIDED/SHE IS SITTING UP EATING AT THIS TIME. WILL CONTINUE TO MONITOR AND REEVALUATE FOR BLOOD SUGAR. PT WAS ALSO ASSISTED TO RESTROOM AND BACK TO BED. BED ALARM PLACED PER PT'S DAUGHTER REQUEST/STATING SHE GETS CONFUSED AT NIGHT IF HER SUGAR GETS LOW AT ALL.
--- NOTE | 2018-04-10 04:23 | NUR ---
PT PICC LINE MEASURED @31CM AND FLUSHED W/NS PER PROTOCOL. PT ASSISTED TO RESTROOM AND BACK TO BED. WILL CONTINUE TO MONITOR. CALL LIGHT AT BEDSIDE. LIGHTS LEFT ON PER REQUEST.
[2018-04-10 04:33] VITALS: BP 124/46
--- NOTE | 2018-04-10 04:34 | NUR ---
STOOL OUTPUT 1X LARGE HARD STOOL
--- NOTE | 2018-04-10 04:36 | NUR ---
MEASURED PICC LINE INSERTION SITE/IT APPEARS HEALTHY MEASURING 31CM AT INSERTION SITE.
[2018-04-10 06:49] LABS: HEMATOCRIT 34.6 % (37.0-47.0); IMMATURE GRANULOCYTES 0.4 % (0.0-5.0); MEAN CELL VOLUME 89.6 fL CALC (80.0-100.0); MEAN CORPUSCULAR HGB 28.5 pG CALC (26.0-32.0); MEAN CORPUSCULAR HGB CONC 31.8 g/L CALC (32.0-36.0); NEUT# 5.26 thou/uL (2.00-7.15); RED BLOOD COUNT 3.86 mill/uL (4.20-5.60); RED CELL DISTRI WIDTH 14.5 % (11.5-15.5)
[2018-04-10 07:02] LABS: ALBUMIN 2.5 g/dL (3.2-5.0); BILIRUBIN, TOTAL 0.1 mg/dL (0.0-1.4); CREATININE 1.2 mg/dL (0.5-1.0); TOTAL PROTEIN 5.7 g/dL (6.3-8.2)
--- NOTE | 2018-04-10 08:25 | NUR ---
PT RESTING IN CHAIR. NO S/S OF DISTRESS. A&0 x3. ASSESMENT COMPLETED AT THIS TIME(SEE INTERVENTIONS). lUNG SOUNDS CLEAR, HEART SOUND NORMAL. BOWEL SOUNDS ACTIVE. SCANT EDEMA NOTED TO BILATERAL EXTREMITIES. PICC LINE SINGLE LUMEN FLUSHES WELL AND GIVES GOOD BLOOD RETURN. VS STABLE. ACCUCHECK THIS AM 78 WNL. PT VOCING NO COMPLINTS AWAITING THE DR. ESTRADA WILKERSON IN REACH. WILL CONTINUE TO MONITOR.
[2018-04-10 08:28] VITALS: BP 127/61
--- NOTE | 2018-04-10 08:35 | NUR ---
DR PINEDA IN TO SEE PT. PLAN OF CARE DISCUSSED. PT VERBALIZES UNDERSTANDING. WILL CONTINUE TO MONITOR
--- NOTE | 2018-04-10 11:00 | NUR ---
PT RESTING IN CHAIR WITH EYES CLOSED. NO S/S/ OF DISTRESS. CALL WILKERSON IN REACH. WILL CONTINUE TO MONITOR.
--- NOTE | 2018-04-10 12:41 | NUR ---
REPORT RECEIVED FROM AARON. PT UP TO CHAIR AT THIS TIME. SO S/S OF DISTRESS. CALL WILKERSON IN REACH. WILL CONTINUE TO MONITOR.
--- NOTE | 2018-04-10 13:42 | NUR ---
P/T IN TO AMBULATE PT. PT TOLERATED WELL. PT SITUATED INTO BED.
[2018-04-10 15:35] VITALS: BP 138/64
--- NOTE | 2018-04-10 17:00 | NUR ---
PT RESTING QUIETLY IN BED. PT UP TO RR WITH WALKER AND STANDBY ASSIST. PT VOIDING CLEAR YELLOW URINE. PT WISHES TO STAY IN HER CHAIR FOR DINNER. REPOSITIONED AND ALL NEEDS MET. CALL WILKERSON IN REACH. WILL CONTINUE TO MONITOR.
[2018-04-10 19:09] VITALS: BP 144/61
--- NOTE | 2018-04-10 19:52 | NUR ---
REPORT GIVEN BY SUNNY HOYT. PATIENT RESTING WITH EYES CLOSED. RESP EVEN AND UNLABORED. NO S/S OF DISTRESS NOTED. FALL PRECAUTIONS IN PLACE.
--- NOTE | 2018-04-10 23:47 | NUR ---
PATIENT RESTING WITH EYES CLOSED. RESP EVEN AND UNLABORED. NO S/S OF DISTRESS NOTED AT THIS TIME.
--- NOTE | 2018-04-11 03:59 | NUR ---
PATIENT UP SEVERAL TIMES DURING THE NIGHT TO USE THE BATHROOM WITH ASSITANCE. RESP EVEN AND UNLABORED. NO S/S OF DISTRSS
[2018-04-11 04:37] VITALS: BP 175/72
[2018-04-11 05:24] LABS: HEMATOCRIT 33.5 % (37.0-47.0); HEMOGLOBIN 10.6 g/dl (12.0-16.0); IMMATURE GRANULOCYTES 0.4 % (0.0-5.0); MEAN CELL VOLUME 89.3 fL CALC (80.0-100.0); MEAN CORPUSCULAR HGB 28.3 pG CALC (26.0-32.0); MEAN CORPUSCULAR HGB CONC 31.6 g/L CALC (32.0-36.0); NEUT# 4.16 thou/uL (2.00-7.15); RED BLOOD COUNT 3.75 mill/uL (4.20-5.60); RED CELL DISTRI WIDTH 14.6 % (11.5-15.5)
[2018-04-11 05:39] LABS: ANION GAP 9 (6-22 (CALC)); BUN 18 mg/dL (8-23); BUN/CREATININE RATIO 17 (12-20 (CALC)); CARBON DIOXIDE 25 mmol/l (22-30); CHLORIDE 109 mmol/l (95-108); GFR 53 ML/MIN (>=60 (CALC)); GFR FOR AFR.AMER. > 60 ML/MIN (>=60 (CALC)); POTASSIUM 4.6 mmol/l (3.5-5.1); SODIUM 138 mmol/l (137-146)
[2018-04-11 07:16] VITALS: BP 154/60
--- NOTE | 2018-04-11 07:20 | NUR ---
PT SITTING IN CHAIR AT BEDSIDE, NO SIGNS OF DISTRESS NOTED. RESP EVEN AND UNLABORED. DAUGHTER AT BEDSIDE. ALERT AND ORIENTED X3, PT VOICES NO NEEDS OR COMPLAINTS AT THIS TIME. DISCUSSED POC, PT IN AGREEMENT. PT MEDICATED WITH METOPROLOL AND INSULIN AT THIS TIME. ASSESSMENT COMPLETED. PT HAD A LARGE BM IN TOILET. CALL LIGHT IN REACH,CONTINUE TO MONITOR.
[2018-04-11 08:21] VITALS: BP 129/53
--- NOTE | 2018-04-11 09:00 | NUR ---
DISCUSSED WITH PT DRESSING CHANGE TO PICC LINE, PT IN AGREEMENT. STERILE TECHNIQUE USED TO CHANGE DRESSING, PT TOLERATED WELL. COVERED WITH TUBULAR NETTING AND IV ROCEPHIN INITIATED. CALL LIGHT IN REACH, CONTINUE TO MONITOR.
[2018-04-11] MEDS ORDERED: LEVEMIR100 UNIT/M SC (10:12)
[2018-04-11] MEDS ORDERED: ROCEPHIN 1 GM1 GM IV (10:13)
[2018-04-11 10:18] VITALS: BP 158/54
--- NOTE | 2018-04-11 10:21 | NUR ---
DISCUSSED WITH DR.NATHAN UGALDE, PER MD LEHMAN TO GIVE.
[2018-04-11 11:55] VITALS: BP 140/90
[2018-04-11 12:05] VITALS: BP 140/90
--- NOTE | 2018-04-11 13:35 | NUR ---
DISCUSSED WITH PT AND DAUGHTER DISCHARGE INSTRUCTIONS, VERBALIZED UNDERSTANDING. DAUGHTER STATES SHE IS NOT SURE WHAT TIME SHE IS COMING TOMORROW FOR IV THERAPY, INFORMED DAUGHTER THAT WHATEVER TIME IS DECIDED THAT SHE WILL HAVE TO RETURN AT THE SAME TIME UNTIL THERAPY COMPLETED, VERBALIZED UNDERSTANDING. PT IS DRESSED AND READY TO GO.
--- NOTE | 2018-04-11 13:37 | NUR ---
Discharge instructions given. Patient verbalizes understanding of same. Discharged in stable condition via Wheelchair to Home with family. All belongings sent with pt.
== END 2018-04-11 13:34 | disposition home or self-care (01) | DRG 638 ==
LOC: ED 13:23 → ED-I 15:11 → ED 18:12 → ICU 18:13 → MS2 04-08 09:44
PROVIDERS: Emergency Medicine; ADMIT Internal Medicine Geriatric Medicine; ATTEND Internal Medicine Geriatric Medicine
PROC: 02HV33Z Insertion of Infusion Device into Superior Vena Cava, Percutaneous Approach (ICD-10-PCS; principal; 2018-04-08)
PROC: B518ZZA Fluoroscopy of Superior Vena Cava, Guidance (ICD-10-PCS; 2018-04-08)
DX: E10.10 Type 1 diabetes mellitus with ketoacidosis without coma (principal); N39.0 Urinary tract infection, site not specified; E10.43 Type 1 diabetes mellitus with diabetic autonomic (poly)neuropathy; K31.84 Gastroparesis; I10 Essential (primary) hypertension; I25.10 Atherosclerotic heart disease of native coronary artery without angina pectoris; E78.5 Hyperlipidemia, unspecified; K21.9 Gastro-esophageal reflux disease without esophagitis; E10.649 Type 1 diabetes mellitus with hypoglycemia without coma; M35.3 Polymyalgia rheumatica; E86.0 Dehydration; B96.20 Unspecified Escherichia coli [E. coli] as the cause of diseases classified elsewhere; Z79.4 Long term (current) use of insulin

== ENCOUNTER → 2018-08-04 | Outpatient (REF) | payer MEDICARE, BC ==
[~2018-08-04] MED LIST changes: +LEVEMIR100 UNIT/M SC; +ROCEPHIN 1 GM1 GM IV
[2018-08-04 09:37] LABS: ALBUMIN 3.5 g/dL (3.2-5.0); BILIRUBIN, TOTAL 0.2 mg/dL (0.0-1.4); CHOLESTEROL HDL RATIO 3.2 (<4.4 (CALC)); CREATININE 1.4 mg/dL (0.5-1.0); POTASSIUM 4.3 mmol/l (3.5-5.1); TOTAL PROTEIN 6.9 g/dL (6.3-8.2)
== END | disposition home or self-care (01) ==
LOC: LAB 08:39
PROVIDERS: ATTEND Internal Medicine Geriatric Medicine
DX: E11.65 Type 2 diabetes mellitus with hyperglycemia (principal); E78.2 Mixed hyperlipidemia

== ENCOUNTER → 2018-08-13 | Outpatient (REF) | payer MEDICARE, BC | END | disposition home or self-care (01) | LOC: BD 13:02 | PROVIDERS: ATTEND Internal Medicine Geriatric Medicine | DX: N95.1 Menopausal and female climacteric states (principal) ==